=== PATIENT | male | born 1945 | race Caucasian/White ===

== ENCOUNTER 2025-04-16 10:12 | Emergency (ER) | payer OTHER ==
[~2025-04-16] VITALS: Ht 175.3 cm; Wt 77.1 kg
[~2025-04-16 10:12] MED LIST: Prilosec Otc20 MG PO; Prinivil10 MG PO
[2025-04-16 10:39] LABS: BASOPHILS ABSOLUTE AUTO 0.02 K/mm3 (0.00-0.23); BASOPHILS PERCENT AUTO 0 % (0-2); EOSINOPHILS ABSOLUTE AUTO 0.23 K/mm3 (0.00-0.68); EOSINOPHILS PERCENT AUTO 4 % (0-6); Hematocrit 36.4 % (37.0-53.0); Hemoglobin 12.1 g/dL (13.5-17.5); IMMATURE GRAN ABSOLUTE AUTO 0.02 K/mm3 (0.00-0.10); IMMATURE GRAN PERCENT AUTO 0 % (0-1); LYMPHOCYTES ABSOLUTE AUTO 1.32 K/mm3 (0.84-5.20); LYMPHOCYTES PERCENT AUTO 20 % (21-46); MONOCYTES ABSOLUTE AUTO 0.46 K/mm3 (0.16-1.47); MONOCYTES PERCENT AUTO 7 % (4-13); Mean Corpuscular HGB 31.7 pg (26.0-34.0); Mean Corpuscular HGB Conc 33.2 g/dL (31.5-36.5); Mean Corpuscular Volume 95 fL (80-100); Mean Platelet Volume 9.8 fL (9.1-12.4); NEUTROPHILS ABSOLUTE AUTO 4.47 K/mm3 (1.96-9.15); NEUTROPHILS PERCENT AUTO 69 % (41-73); Platelet Count 164 K/mm3 (150-400); RDW Coefficient Variation 13.7 % (11.7-14.2); RDW Standard Deviation 48.6 fL (35.1-46.3); Red Blood Cell Count 3.82 M/mm3 (4.30-5.90); White Blood Cell Count 6.52 K/mm3 (4.00-11.30)
[2025-04-16 11:18] LABS: Albumin, Blood 3.4 g/dL (3.4-5.0); Albumin/Globulin Ratio 1.1 (0.8-1.8); Bilirubin, Total 0.6 mg/dL (0.1-1.0); Bun/Creatinine Ratio 20.8 (12.0-20.0); Calcium, Blood 8.6 mg/dL (8.5-10.1); Creatinine, Blood 0.87 mg/dL (0.60-1.20); Globulin, Blood 3.2 g/dL (2.2-4.0); Potassium, Blood 4.1 mmol/L (3.5-5.5); Total Protein, Blood 6.6 g/dL (6.4-8.2)
[2025-04-16 12:31] VITALS: BP 141/80
== END 2025-04-16 12:48 | disposition home or self-care (01) ==
LOC: ER 10:12
PROVIDERS: Emergency Medicine
DX: R55 Syncope and collapse (principal); G20.A1 Parkinson's disease without dyskinesia, without mention of fluctuations; I10 Essential (primary) hypertension; K21.9 Gastro-esophageal reflux disease without esophagitis; Z88.2 Allergy status to sulfonamides; Z88.1 Allergy status to other antibiotic agents; Z79.899 Other long term (current) drug therapy
CPT/HCPCS: 70450; 80053; 84484; 85025; 93005; 93010; 99285-25

== ENCOUNTER → 2025-08-12 | Outpatient (CLI) | payer OTHER | LOC: LAB SHORT 09:00 → LAB 09:00 | DX: R30.0 Dysuria (principal) | CPT/HCPCS: 87086 ==